=== PATIENT | male | born 1940 | race Caucasian/White ===

== ENCOUNTER 2020-11-04 06:22 | Inpatient (IN) | payer OTHER ==
[~2020-11-04] VITALS: Ht 170.2 cm; Wt 71.9 kg
[2020-11-04] VITALS (18 sets, daily range): BP systolic 102–149; BP diastolic 52–103
[2020-11-04 06:55] LABS: ABSOLUTE NEUTROPHILS 6.5 thou/uL (1.4-8.2); BASOPHILS 0.7 % (0.0-2.0); EOSINOPHILS 1.4 % (0.0-3.0); HEMATOCRIT 39.1 % (42.0-52.0); HEMOGLOBIN 12.6 gm/dL (14.0-18.0); LYMPHOCYTES 31.9 % (24.0-44.0); MCH 31.1 pg (26.0-34.0); MCHC 32.4 g/dL (28.0-37.0); PLATELET COUNT 212 thou/uL (150-400); RBC 4.07 mil/uL (4.50-6.00); RDW 12.5 % (10.5-14.5); WBC 10.6 thou/uL (4.0-11.0)
[2020-11-04 07:02] LABS: INR 0.97; PROTIME 10.6 Seconds (10.5-12.1)
[2020-11-04 07:09] LABS: ALBUMIN 3.9 g/dL (3.4-5.0); ANION GAP 25 mmol/L (7-16); BUN 33 mg/dL (7-18); CALCIUM 9.5 mg/dL (8.5-10.1); CHLORIDE 102 mmol/L (98-107); CO2 12 mmol/L (21-32); CREATININE 2.2 mg/dL (0.7-1.3); GLUCOSE 207 mg/dL (74-106); POTASSIUM 4.3 mmol/L (3.5-5.1); SGOT 20 U/L (15-37); SGPT 26 U/L (16-63); SODIUM 139 mmol/L (136-145); TOTAL BILIRUBIN 0.3 mg/dL (0.2-1.0); TOTAL PROTEIN 7.5 g/dL (6.4-8.2); TROPONIN-I <0.06 ng/mL (<0.06)
[2020-11-04 08:41] LABS: URINE BILIRUBIN NEGATIVE (Negative); URINE BLOOD 1+ (Negative); URINE CLARITY CLEAR; URINE COLOR YELLOW; URINE GLUCOSE-RANDOM* NEGATIVE (Negative); URINE KETONES NEGATIVE (Negative); URINE LEUKOCYTES-REFLEX NEGATIVE (Negative); URINE NITRITE-REFLEX NEGATIVE (Negative); URINE PROTEIN (DIPSTICK) TRACE (Negative); URINE SPECIFIC GRAVITY >= 1.030 (1.005-1.035); URINE UROBILINOGEN 0.2 E.U./dl (0.2-1.0)
[2020-11-04 08:46] LABS: AMP/METHAMP Negative (Negative); BARBITURATES Negative (Negative); BENZODIAZEPINES Negative (Negative); COCAINE Negative (Negative); OPIATES Negative (Negative); PCP Negative (Negative)
--- NOTE | 2020-11-04 08:46 | EKG ---
[address] [place] [address] ELECTROCARDIOGRAM REPORT Name: DYLON SHOEMAKER Room #: REG KATIE Acuna#: [id number] Admission: 11/04/20 Attend Phys: Discharge: Date of : 38 Report #: [id number] [facility] ED Test Date: 2020-11-04 Test Time: 06:36:26 Pat Name: DYLON SHOEMAKER Department: Patient ID: [id number]- Room: Gender: M Bearing Maker: tej : 1940 Requested By: Conchita Mandujano Order Number: [id number] MD: Gigi Guerra Measurements Intervals [place] Rate: 132 P: 38 DC: 142 QRS: 45 QRSD: 97 T: 30 QT: 300 QTc: 445 Interpretive Statements Sinus tachycardia Baseline wander in lead(s) V6 No previous ECG available for comparison Electronically Signed On 11-04-2020 8:46:10 CDT by Gigi Guerra [email or web address] <ELECTRONICALLY SIGNED> By: Gigi Guerra MD, [facility] 11/04/20 0846 [id number] Gigi Guerra MD, FACC /EPI
[2020-11-04 08:57] LABS: METHADONE Negative (Negative)
[2020-11-04 09:21] LABS: CASTS None Seen /LPF (None Seen); SQUAMOUS 0-3 Few /LPF (0-3)
[2020-11-04 09:22] LABS: BACTERIA-REFLEX None Seen /HPF (None Seen); CRYSTALS None Seen /LPF (None Seen); MUCUS 0-3 Light strn/LPF (None Seen); URINE RBC 3-10 Few /HPF (NONE SEEN); URINE WBC-REFLEX 0-5 Rare /HPF (0-5)
[2020-11-04] MEDS ORDERED: ROSUVASTATIN CA10 MG PO ×2 (09:31)
[2020-11-04] MEDS ORDERED: CELEBREX 200 M200 MG PO (09:32)
[2020-11-04] MEDS ORDERED: VOLTAREN GEL 1100 G1 TOP (09:33)
[2020-11-04] MEDS ORDERED: ASA81BEC PO (09:33)
[2020-11-04] MEDS ORDERED: SYNTHROID125 MC1 PO (09:33)
[2020-11-04] MEDS ORDERED: RAPAFLO8 MG PO (09:35)
[2020-11-04] MEDS ORDERED: NEXIUM 40 MG CA40 M1 PO (09:35)
[2020-11-04] MEDS ORDERED: TRIAMCINOLONE A15 G1 TOP ×2 (09:36)
[2020-11-04] MEDS ORDERED: EUCERIN ADVANCE85 GM TOP ×2 (09:37)
[2020-11-04] MEDS ORDERED: LISINOPRIL5 MG PO ×2 (09:37)
[2020-11-04] MEDS ORDERED: MECLIZINE HCL25 M1 PO ×2 (09:37)
[2020-11-04] MEDS ORDERED: FLONASE 0.05%50 MCG NARES (09:38)
[2020-11-04] MEDS ORDERED: ZYRTEC10 M5 PO ×2 (09:38)
[2020-11-04] MEDS ORDERED: SINGULAIR 10 MG10 M1 PO (09:39)
[2020-11-04 10:54] LABS: CSF GLUCOSE 103 mg/dL (40-70); CSF PROTEIN 68 mg/dL (15-45)
[2020-11-04 11:33] LABS: CSF COLOR XANTHOCHROMIC; VOLUME 2 ml
[2020-11-04 11:34] LABS: CSF CLARITY SL HAZY; CSF RBC 1081 /mm3; CSF WBC 8 /mm3 (0-10)
[2020-11-04 11:43] LABS: FOLIC ACID 26.1 ng/mL (8.6-58.9)
--- NOTE | 2020-11-04 18:03 | NUR ---
AT APPX 1140, PT CARE TAKEN OVER BY THIS RN AFTER RECEIVING REPORT. PT VERY RESTLESS, ABLE TO OPEN EYES TO VOICE, BUT NOT FOLLOWING COMMANDS. CONTINUOUS CARDIAC MONITORING AND FREQUENT VS IN PROGRESS. SEIZURE PRECAUTIONS IN PLACE. FAMILY AT BEDSIDE. CONTACT INFORMATION TAKEN AND UPDATES PROVIDED. REASSURANCES AND EMOTIONAL SUPPORT PROVIDED.
--- NOTE | 2020-11-04 18:05 | NUR ---
PT REMAINS RESTLESS AND RESTRAINED. PT OPENS EYES TO VOICE, BUT JUST MUMBLES IN RESPONSE TO QUESTIONS. PT DOES NOT FOLLOW COMMANDS, BUT MOVES ALL EXT INDEPENDENTLY DURING ROM W/ RESTRAINT ASSESSMENTS. PT CONDITION IS GUARDED BUT PROGRESSING TOWARD GOALS AT THIS TIME.
--- NOTE | 2020-11-04 22:50 | NUR ---
UPON INITIAL ASSESSMENT, PT WAS VERY RESTLESS IN BED. HE NODDED HIS HEAD YES WHEN ASKED IF HE WAS IN PAIN. PRN FENTANYL GIVEN. LORAZEPAM GIVEN FOR AGITATION/RESTLESSNESS. BEHAVIOR IMPROVED AND PT IS SLEEPING AT THIS TIME. PT IS IN BILATERAL WRIST RESTRAINTS. BILATERAL LEG RESTRAINTS NO LONGER NEEDED. PT'S MERY CALLED UNIT AROUND 2230. SHE WAS UPDATED ON PT STATUS. WILL CONTINUE TO MONITOR CLOSELY DURING THE NIGHT.
[2020-11-04 23:06] LABS: GLYCOHEMOGLOBIN (HGB A1C) 5.4 % (4.8-5.6)
[2020-11-05] VITALS (32 sets, daily range): BP systolic 84–142; BP diastolic 51–96
--- NOTE | 2020-11-05 03:49 | NUR ---
PT CONTINUES TO BE RESTLESS WHEN AWAKE. HE REMAINS CONFUSED AND UNABLE TO VERBALIZE ANY COHERENT WORDS. PRN LORAZEPAM AND FENTANYL GIVEN PER EMAR INDICATED FOR PAIN AND/OR AGITATION. RESTLESSNESS IMPROVES WITH MEDICATION. PT APPEARS TO HAVE SOME PERIODS OF APNEA WHILE SLEEPING. HE REMAINS ON 2-3L NC. FALL PRECAUTIONS IN PLACE. NOT PROGRESSING WELL TOWARD POC GOALS. WILL CONTINUE TO MONITOR.
[2020-11-05 05:11] LABS: ABSOLUTE NEUTROPHILS 6.1 thou/uL (1.4-8.2); BASOPHILS 0.3 % (0.0-2.0); EOSINOPHILS 0.1 % (0.0-3.0); HEMATOCRIT 28.5 % (42.0-52.0); LYMPHOCYTES 14.1 % (24.0-44.0); MCH 31.6 pg (26.0-34.0); MONOCYTES 10.1 % (1.0-8.0); POLYS 75.4 % (36.0-66.0); RBC 3.06 mil/uL (4.50-6.00); RDW 12.5 % (10.5-14.5); WBC 8.1 thou/uL (4.0-11.0)
[2020-11-05 05:23] LABS: CALCIUM 8.1 mg/dL (8.5-10.1); CREATININE 1.7 mg/dL (0.7-1.3); MAGNESIUM 2.1 mg/dL (1.8-2.4); POTASSIUM 4.1 mmol/L (3.5-5.1)
[2020-11-05 05:28] LABS: HEMOGLOBIN 9.7 gm/dL (14.0-18.0); PLATELET COUNT 133 thou/uL (150-400)
--- NOTE | 2020-11-05 09:50 | NUR ---
spoke with , note is for Dorothy mendes, son girl friend. cm work note completed and given to bedside nurse to give to family when they arrive today.
[2020-11-05 11:10] LABS: BE(vivo) -6.2 mmol/L (-2 to +3); HCO3 18.4 mmol/L (22.0-26.0); PCO2 33.5 mmHg (35.0-45.0); PO2 65.5 mmHg (80.0-100.0); pH 7.358 (7.360-7.450); sO2 92.4 % (92.0-98.0)
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
--- NOTE | 2020-11-05 13:55 | NUR ---
VAT CONSULTED FOR CVAD. ATTEMPTED LIJ, VESSEL DISAPPEARS WITH INSPIRATION, SO UNSUCCESSFUL.RESP MORE MOIST, NOT TOLERATING POSITION OF HEAD. SO HOB ELEVATED AND HUNG BASILIC WAS WIDELY PATENT WITH USG, 5FR TL POWER PICC TRIMMED TO 42CM INSERTED TO 3CM EXTERNAL WITH PEAKED PWAVES ON 3CG FOR CONFIRMATION. PICC RELEASED FOR IMMEDIATE USE PER PROTOCOL. PT TOLERATED WELL.
[2020-11-05 14:27] LABS: HEMOGLOBIN 10.9 gm/dL (14.0-18.0)
--- NOTE | 2020-11-05 19:54 | NUR ---
PT OBTUNDED AND LETHARGIC. NOT FOLLOWING COMMANDS.MUMBLES WORDS EXPRESSING PAIN AND NOT TO BE SUCTIONED. PT GURGLING AND VERY WEAK TO CLEAR HIS SECRETIONS. AND AWARE OF PATIENT CONDITION. ABG AND CEST XRAY WAS PERFORMED TO EVALUATE PATIENT RESPIRATORY STATUS. PT ON 4L NASAL CANNULA.PER PATIENT NEEDS TO BE PERIODICALLY SUCTIONED. PATIENT WAS NOT GIVEN ANY NARCOTICS AND ACTIVAN THROUGHOUT THE DAY. HOWEVER, ORDER FOR PRN HALDOL RECEIVED FOR AGITATION IN THE NIGHT. ARTIE OATES IN THE ROOFER HELPER VINYL COATING MADE AWARE ABOUT PERIODIC SUCTIONING AND NO USE OF NARCOTICS AND ACTIVAN FOR SEIZURES. CONTINUE TO MONITOR.
--- NOTE | 2020-11-05 22:42 | NUR ---
2229 - CALLED UNIT FOR UPDATE. SHE WAS INFORMED OF PT CONDITION SO FAR THIS EVENING. ALL QUESTIONS ANSWERED.
--- NOTE | 2020-11-05 22:43 | NUR ---
UPON INTIAL ASSESSMENT, PT DROWSY BUT EASILY ARROUSABLE. HE WAS ABLE TO SQUEEZE HANDS ON COMMAND. PT MUMBLES MOST WORDS BUT DID SAY "NO" WHEN ASKED IF HE WAS IN PAIN. HE ALSO STATED THAT HE WAS "READY TO GO HOME". PT HAS COUGH, BUT DOES NOT CLEAR HIS OWN ORAL SECRETIONS WELL. ORAL SUCTIONING PROVIDED; MODERATE AMOUNT OF YELLOW SECRETIONS SUCTIONED FROM BACK OF THROAT. VSS. WILL CONTINUE TO MONITOR.
[2020-11-06] VITALS (33 sets, daily range): BP systolic 110–154; BP diastolic 56–84
--- NOTE | 2020-11-06 05:41 | NUR ---
PT SLEPT MOST OF THE NIGHT. HE DOES BECOME IRRITABLE WITH NURSING CARE. SPO2 >92% ON 3-4L NC. PT CONTINUES TO HAVE DIFFICULTY CLEARING ORAL SECRETIONS IN BACK OF THROAT. ORAL SUCTIONING PROVIDED TO HELP PT CLEAR SECRETIONS. VSS. BILATERAL WRIST RESTRAINTS REMAIN IN PLACE. CHONG TO DD. 24 HOUR URINE COLLECTION UNTIL 0930. FALL PRECAUTIONS IN PLACE. NOT PROGRESSING WELL TOWARD POC GOALS.
[2020-11-06 05:48] LABS: HEMATOCRIT 30.5 % (42.0-52.0); HEMOGLOBIN 10.5 gm/dL (14.0-18.0); MCH 31.8 pg (26.0-34.0); MCHC 34.3 g/dL (28.0-37.0); MCV 92.9 fL (80.0-100.0); RBC 3.28 mil/uL (4.50-6.00); RDW 12.4 % (10.5-14.5); WBC 6.8 thou/uL (4.0-11.0)
[2020-11-06 06:01] LABS: CALCIUM 8.4 mg/dL (8.5-10.1); CREATININE 1.5 mg/dL (0.7-1.3); POTASSIUM 4.1 mmol/L (3.5-5.1)
[2020-11-06 10:08] LABS: ANA INTERPRETATION Negative (Negative)
--- NOTE | 2020-11-06 19:20 | NUR ---
PT MORE ALERT AND RESPONSIVE ACCORDING TO OTHERS OF CARE TEAM. WEANING O2 TO 1L IN EVENING, ALTHOUGH STILL DIFFICULTY W/CLEARING SECRETIONS. COUGH HAS SHOWN IMPROVMENT THROUGHOUT DAY AND WHILE AWAKE. 24 HOUR URINE SPECIMEN SENT IN AM. SEEN BY PT/OT. BED IN CHAIR POSITION. DID NOT TOLERATE SWALLOW EVAL TODAY. RESTRAINTS REMOVED @ 1300 PT WAS COOPERATIVE W/MAJORITY OF NURSING CARE W/EXCEPTION TO ORAL CARE/SUCTION.
[2020-11-07] VITALS (14 sets, daily range): BP systolic 132–160; BP diastolic 68–83
[2020-11-07 05:47] LABS: CALCIUM 8.2 mg/dL (8.5-10.1); CREATININE 1.4 mg/dL (0.7-1.3); POTASSIUM 3.6 mmol/L (3.5-5.1)
--- NOTE | 2020-11-07 06:34 | NUR ---
ORIENTEDX3, FOLLOWS COMMANDS, MILDLY IRRITABLE BUT COOPERATIVE. WEAK COUGH, NOT ABLE TO FULLY CLEAR SECRETIONS AND WILL NOT ALLOW RN TO ATTEMPT TO DEEP SUCTION. ENCOURAGED TO FREQUENTLY COUGH AND USE YAUNKER. ABLE TO ACCURATELY RECOUNT PAST INFORMATION, DOES NOT REMEMBER CIRCUMSTANCES THAT BROUGHT HIM IN. SR, BP STABLE, 02 OFF AT 0600, SATS >95%. DENIES PAIN.
--- NOTE | 2020-11-07 11:00 | NUR ---
chart review. discussed during los, possible ready for dc by tuesday, still npo . 5n consults vs home with hh. he on RA, elevated temp over hs. no anticipated dc over the weekend. will cont following as needed for dc needs.
--- NOTE | 2020-11-07 15:05 | NUR ---
PT WORKING WITH ST/PT/OT TODAY. UP TO CHAIR. TOLERATING PUREED DIET AND HONEY THICK LIQUIDS. PT VERY WEAK. PT'S SON AND HERE THIS AFTERNOON AND UPDATED. ORDER TO TRANSFER OUT OF ICU. WILL CALL REPORT TO 3W RN.
--- NOTE | 2020-11-07 16:05 | NUR ---
PATIENT IS A CANDIDATE FOR ACUTE REHAB AND HAS BEEN ACCEPTED FOR 5N PENDING BED AVIALABILITY. WEEKEND LIAISON FOR REHAB IS TACHO Green AND CAN BE REACHED AT [phone].
--- NOTE | 2020-11-07 16:45 | NUR ---
report given to cristin vaughn 3w. transferred to 3w. pt's and son informed.
--- NOTE | 2020-11-07 19:26 | NUR ---
PATIENT TRANFERED FROM ICU AT 1545. A/O X3. PLEASANT. PATIENT TURN TO AGITED AND CONFUSED AT 1800. PUTED PICC LINE OUT REFUSED TO HAVE DINER. MAX ASSISTED BACK TO BED WITH BED ARLRM ON. WILL KEEP MONITOR.
[2020-11-08 04:40] VITALS: BP 154/79
[2020-11-08 07:05] VITALS: BP 122/59
--- NOTE | 2020-11-08 07:43 | NUR ---
PT IS CONFUSED AND IMPULSIVE AT POINTS STATING "I'M GETTING OUT OF BED TO LOOK FOR MY GLASSES." FOLLOWING POC WITH IVF AND IVPB. CHONG IN PLACE WITH GOOD OUTPUT. HOURLY ROUNDING.
[2020-11-08 11:12] LABS: HEMOGLOBIN 9.7 gm/dL (14.0-18.0)
[2020-11-08 11:15] LABS: HEMATOCRIT 27.8 % (42.0-52.0); MCHC 34.9 g/dL (28.0-37.0); MCV 91.9 fL (80.0-100.0); RBC 3.03 mil/uL (4.50-6.00); RDW 12.1 % (10.5-14.5); WBC 4.4 thou/uL (4.0-11.0)
[2020-11-08 11:24] LABS: CALCIUM 8.5 mg/dL (8.5-10.1); CREATININE 1.4 mg/dL (0.7-1.3); POTASSIUM 3.4 mmol/L (3.5-5.1)
--- NOTE | 2020-11-08 14:54 | NUR ---
assumed care of pt at 0700. pt in no distress. pleasant. oriented to situation. socializing with family. no seizure activity ordered. ivf adjusted per physician. good output. up to chair for most of the day, requiring moderate assist. no othejr changes to report.
[2020-11-08 19:32] VITALS: BP 142/78
--- NOTE | 2020-11-08 20:57 | NUR ---
SOA GUTTERAL, WHEEZING UPPER LOBES, DIMINISHED IN THE BASES. SOA WITH MOVEMENT, ABLE TO COMMUNICATE. PROVIDER LABORATORY ASSOCIATE NOTIFIED. ORDERS RECEIVED.
--- NOTE | 2020-11-08 22:55 | NUR ---
PT RESTING IN BED. O2 PER NC. PT SOA, LUNGS COARSE. FAMILY AT BEDSIDE. PT OBESE GENERALIZED EDEMA. PT STATED HE HAS FLUID ON HIS HEART AND THAT HE HAS HAD 5 HEART ATTACKS. CHONG TO DD. CPAP AT HS. PT REPORTED CONSTIPATION MEDICINE ADDED AND THAT HE HAD A SMALL BM ON DAY SHIFT ON BSC. CHEERFUL HAPPY, HUSLIA. BED ALARM ON.
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
[2020-11-09 05:03] VITALS: BP 123/61
[2020-11-09 07:08] VITALS: BP 127/61
[2020-11-09 10:44] LABS: CALCIUM 8.4 mg/dL (8.5-10.1); CREATININE 1.5 mg/dL (0.7-1.3); POTASSIUM 3.4 mmol/L (3.5-5.1)
[2020-11-09 15:08] VITALS: BP 137/78
--- NOTE | 2020-11-09 17:33 | NUR ---
PT ASSESSED AT START OF SHIFT. VERY BEAVER BUT MOSTLY ORIENTED. WEAKNESS AND NEEDS HELP TRANSFERING. EATING PUREED DIET W/ OCCASIONAL COUGHING BUT NO SIGNS OF ASPIRATION. SMALL SOFT BROWN BM. GOOD URINE OUTPUT. DAUGHTER IN TO VISIT. C/O ANIL HIP PAIN W/ TYLENOL WHICH HELPED. PLANNING ON REHAB BEFORE GOING HOME.
[2020-11-09 19:07] VITALS: BP 146/83
--- NOTE | 2020-11-09 22:57 | NUR ---
PTALERT. MILDLY CONFUSED. REORIENTED PT TO CARRECT DATE AND PLACE. SEIZURE PRECAUTIONS IN PLACE. NO S/S SZ ACTIVITY NOTED SO FAR TONIGHT. NO C/O PAIN. NO S/S DISTRESS . SR ON THE MONITOR. BED DOWN . CALL LIGHT IN REACH. BED ALARM IS ON.
--- NOTE | 2020-11-10 00:35 | NUR ---
PT C/O ANIL HIP PAIN 11/03. MEDICATED WITH 2 TLENOL ORDERED. NO OTHER S/S SZ OR DISTRESS NOTED.
[2020-11-10 04:23] VITALS: BP 149/98
[2020-11-10 06:01] LABS: CALCIUM 8.5 mg/dL (8.5-10.1); CREATININE 1.5 mg/dL (0.7-1.3); POTASSIUM 3.2 mmol/L (3.5-5.1)
--- NOTE | 2020-11-10 06:13 | NUR ---
Pt progrssing slowly towards d/c goals. NO SKIN BREAKDOWN NOTED. VSS AFEBRILE. C/O BILATERAL HIP PAIN. MEDICATED WITH TYLENOL PO. PRESENTLY HE IS SLEEPING. NO S/S PAIN.
[2020-11-10 07:34] VITALS: BP 168/83
--- NOTE | 2020-11-10 07:51 | NUR ---
SPOKE WITH DR ASTUDILLO THIS AM. NOTIFIED HER PT CONTINUES TO C/O BILATERAL HIP PAIN. ANIL HIP XRAYS ORDERED. ARLETTE DISCONTINUED AT 07:40 THIS AM.
--- NOTE | 2020-11-10 11:19 | NUR ---
ON-GOING ASSESSMENT: CM REVIEWED CHART AND SPOKE WITH ATTENDING. PT IS HAVING HIP PAIN AND IS TO HAVE XRAYS TODAY. IF NO NEED TO INTERVENE PLAN IS POSSIBLE DISCHARGE TOMORROW TO [facility] ACUTE REHAB. ACUTE REHAB STATING THEY CAN ACCEPT PATIENT ONCE HE IS MEDICALLY STABLE BUT WANT TO CONTINUE TO SEE HOW HE DOES WITH THERAPY HE WAS IN ALOT OF PAIN. DR. HERNANDEZ MET WITH PATIENT THIS AM. PLAN IS FOR LIKELY DISCHARGE TO 5N TOMORROW. CM SPOKE WITH PATIENTS SHELBIE ORDONEZ TO UPDATE AND SHE STATES SHE WILL BE UP AT THE HOSPITAL THIS EVENING TO VISIT. CM ALSO NOTIFIED BEDSIDE RN PATIENT WILL NEED ANOTHER NEGATIVE COVID TEST PRIOR TO GOING TO 5N THEY REQUEST A TEST WITHIN 48 HOURS OF ADMISSIONS. CM WILL CONTINUE TO FOLLOW TO ASSIST NEEDED.
[2020-11-10 16:19] VITALS: BP 173/91
--- NOTE | 2020-11-10 18:56 | NUR ---
PATIENT CONTINUES TO COMPLAIN OF BILATERAL HIP PAIN, XRAY OBTAINED - SEE RESULTS. PATIENT WORKED WITH PT: AMBULATED IN ROOM AND SAT IN CHAIR FOR 2HR. PATIENT VOIDING WITHOUT COMPLICATION POST DC OF CHONG. PLANS TO DC TO REHAB ON 11/11/20 PENDING PHYSICIAN ORDERS.
[2020-11-10 19:36] VITALS: BP 150/85
--- NOTE | 2020-11-10 22:30 | NUR ---
PT PROGRESSING TOWARDS D/C GOALS. VSS AFEBRILE. C/O PAIN TO HIPS FLEXORIL GIVEN AND PT IS SLEEPING QUIETLY PRESENTLY. NO S/S SZ ACTIVITY NOTED. LEFT AC IV RESTARTED SINCE PT PULLED OUT IV ON DAY SHIFT X2. D5 AT 100 ML INFUSING. NO S/S DISTRESS. BED DOWN. CALL LIGHT IN REACH. BED ALARM IS ON. WILL CONTINUE TO MONITOR PT FOR CHANGES.
[2020-11-11 03:21] VITALS: BP 112/65
--- NOTE | 2020-11-11 06:09 | NUR ---
PT PROGRESING SLOWLY TOWARDS D/C GOALS. VSS AFEBRILE. PT SLPT BETTER AFTER RECEIVING HYDROCODONE FOR HIP PAIN. NO S/S SZ ACTIVITY NOTED TONIGHT.
[2020-11-11 07:42] VITALS: BP 127/93
[2020-11-11] MEDS ORDERED: IPRAT-ALBUT 0.5-3 ML INH ×2 (12:51)
[2020-11-11] MEDS ORDERED: DOXYCYCLINE HYC50 MG PO ×2 (12:51)
[2020-11-11] MEDS ORDERED: DIVALPROEX SOD500 M1 PO ×2 (12:52)
[2020-11-11] MEDS ORDERED: CYCLOBENZAPRINE5 MG PO ×2 (12:52)
[2020-11-11] MEDS ORDERED: NORVASC5 MG PO ×2 (12:52)
[2020-11-11] MEDS ORDERED: PEPCID20 MG PO ×2 (12:53)
[2020-11-11] MEDS ORDERED: VITAMIN B-1100 M2 PO ×2 (12:53)
--- NOTE | 2020-11-11 13:13 | NUR ---
DISCHARGE NOTE: SHASHA reviewed chart and spoke with nursing and attending physician. Pt is medically stable to discharge to 5N today. SW confirmed with [facility] manufacturing worker that they are able to accept pt today. Pt to be moved to room 509 on 5N. Repeat COVID test ordered today, which is negative. SHASHA met with pt at bedside to provide update and discuss discharge plan to 5N. Pt is aware and in agreement with plan. SHASHA spoke with pt's , Laura, via phone to notify of discharge and new room number. Pt's verbalized understanding and will be at [facility] later today. Pt's requested to speak with attending physician. SW provided contact info to attending physician. Pt to move to 5N when the room later today. Rehab CM to follow and assist as needed with discharge planning.
[2020-11-11 15:13] VITALS: BP 138/76
--- NOTE | 2020-11-11 17:33 | NUR ---
PATIENT DC'D TO REHAB. TELEPHONE REPORT GIVEN TO ARTIE PIZANO, WHO WILL ASSUME CARE OF PATIENT. PATIENT IS A/O X2-3 WITH PERIODS OF TEARFULNESS AND ANXIETY. PATIENT FC AND DOES HAVE BILAT HIP PAIN, SEE CHARTING. PATIENT TRANSFERRED VIA WHEEL CHAIR WITH FAMILY AT BEDSIDE.
[2020-11-13 09:41] LABS: HSV 1 DNA None detected
[2020-11-13 09:42] LABS: HSV 2 DNA None detected
[2020-11-13 09:51] LABS: HSV PCR SOURCE CSF
--- NOTE | 2020-11-13 17:58 | HC ---
[facility] [place] [address] CONSULTATION Name: DYLON SHOEMAKER Room #: 351-P [facility] IN M.R.#: [id number] Admission: 11/04/20 Attend Phys: Jose Manuel Moreira MD Discharge: 11/11/20 Date of : 39 Report #: [id number] THIS REPORT FOR: cc: FAM - Clinic physician unknown FAM - Clinic physician unknown Javi Roberson MD ~ DOC #: [id number] Javi Roberson MD DATE OF SERVICE: 11/04/2020 HISTORY OF PRESENT ILLNESS: This is an 80-year-old male patient who was seen by me today in the emergency room multiple times and subsequently in the ICU. I talked to the ICU nurses multiple times, ER nurses, MR boiler testing technician, emergency room physician, hospitalist, numerous times. The original consultation I got in this patient was from Emergency Room physician, Dr. Mandujano that this patient has presented to emergency room with multiple seizures. He had no prior history of seizure. The history I got was that he was not started on any potentially epileptiform medication recently. He does not drink alcohol at all and he has not drank any alcohol for a long time. His seizures were idiopathic at that time. His lactic acid was very high. Subsequently, I came to emergency room and I talked to the family, and confirmed the history. This patient had 2 seizure before. Emergency personnel went there, one he had in front of them and at least one he had an emergency room. The seizures will occur without recovering. . They got a CAT scan on him, which was mostly unremarkable. They could not get the CAT scan with contrast because his creatinine was high. I called his family doctor and got some history from him and apparently this patient does not drink any water on a persistent basis and does not keep himself hydrated. REVIEW OF SYSTEMS: Indicate that this is a new onset seizure. The patient was not any septic. The patient has pretty significant alteration in mental status for several hours before the patient had his first seizure, so he has alteration of his mentation, which led to seizure. I went over all the things with them and does not look like there is any potential epileptiform factors in this patient, which caused his seizure or alteration in mental status. He does not appear to be septic. His urinalysis was okay and his chest x-ray does not appear to be showing any pneumonia, so there is nothing which will cause him encephalopathy either. PAST MEDICAL HISTORY: Negative for seizure. FAMILY HISTORY: Also negative for congenital epilepsy. SOCIAL HISTORY: The family confirmed that he does not do any drugs and he does not drink any alcohol. [address] [address] CONSULTATION Name: DYLON SHOEMAKER Room #: 351-P [facility] IN M.R.#: [id number] Admission: 11/04/20 Attend Phys: Jose Manuel Moreira MD Discharge: 11/11/20 Date of : 39 Report #: [id number] PHYSICAL EXAMINATION: Attempted multiple times and all the time he is severely agitated. He is very restless. He is in restraints. He will not follow any commands, looks like he can move all 4 extremities, but rest of the examination is not possible. As an emergency, I got an MRI of the brain, MRA of the head, MRV done. He used to be on anti-inflammatory medication for his pain and wanted to rule out intracranial sinus thrombosis and I reviewed with the radiologist and he does not think there is any evidence for intracranial sinus thrombosis or in fact his MRI does not show any cause, which can explain his symptoms. He does not have any lesion in the temporal area and he does not have any lesion anywhere else in the brain or any suggestion on the MRI anything which can cause multiple seizures. I talked to emergency room physician and I talked to the family about indication, potential complication and alternatives for spinal tap. They wanted to proceed with a spinal tap. I talked to the emergency room physician that either she can do it or she should get it done under fellow by radiologist. She proceeded with spinal tap and looks like that is mostly unremarkable. It is a traumatic spinal tap and there are some RBCs and protein is probably high because of that but it was difficult to be certain that portion is being addressed by ID and I will defer further evaluation and management to them. They gave him a dose of Keppra, but the patient was still very agitated and because of that, I started him on valproic acid. I also gave him thiamine because he has kidney failure and he is so agitated and I am not sure what his nutritional status is. We will check her thyroid and B12 level in this patient and I have asked them to look for any infection marker. I am not sure what the etiology of the patient's seizures are. I have talked to his primary care and try to get as much history as possible because of this is an unusual age to start seizures and so far, we have not found any cause for the seizure. I have discussed the options with the family in great detail and I had multiple visits and throughout the day, I have spent more than 90 minutes of time taking care of this patient and majority was spent counseling and coordinating. MD CARLOS García/ALEXANDRA <ELECTRONICALLY SIGNED> By: Javi Roberson MD 11/13/20 [id number] Javi Roberson MD /nt
--- NOTE | 2020-11-13 17:58 | EEG ---
[facility] [place] [address] ELECTROENCEPHALOGRAM Name: DYLON SHOEMAKER Room #: 351-P [facility] IN M.R.#: [id number] Admission: 11/04/20 Attend Phys: Jose Manuel Moreira MD Discharge: 11/11/20 Date of : 39 Report #: [id number] THIS REPORT FOR: //name// DOC #: [id number] Javi Roberson MD DATE OF SERVICE: 11/05/2020 FINDINGS: This patient is being evaluated for the possibility of seizure. EEG is done to evaluate for any seizure. EEG was done by placing the electrode by standard 10-20 system of electrode placement. Both referential and sequential montages were used for recording. Background activity in this patient's EEG is about 7 Hz and 10 microvolt. Photic stimulation is unremarkable. Throughout the record, no active epileptiform activity was noticed. IMPRESSION: This patient's EEG does not demonstrate any active epileptiform activity. It is slow and poorly formed but that is a nonspecific abnormality which can occur with encephalopathy, effect of psychotropic medication, dementia, etc. Clinical correlation is recommended. Javi Roberson MD PK/ALL <ELECTRONICALLY SIGNED> By: Javi Roberson MD 11/13/20 1758 [id number] [id number] Javi Roberson MD /nt
--- NOTE | 2020-11-13 17:58 | EEG ---
[facility] [place] [address] ELECTROENCEPHALOGRAM Name: DYLON SHOEMAKER Room #: 351-P [facility] IN M.R.#: [id number] Admission: 11/04/20 Attend Phys: Jose Manuel Moreira MD Discharge: 11/11/20 Date of : 39 Report #: [id number] THIS REPORT FOR: //name// DOC #: [id number] Javi Roberson MD DATE OF SERVICE: 11/04/2020 This patient is being evaluated for multiple seizures. EEG was done by placing the electrode by standard 10-20 system of electrode placement. Both referential and sequential montages were used for recording. The patient was very agitated and it was very difficult to record the EEG. EEG appeared to be low voltage and background activity is about 7-8 Hz and about 10 microvolt. Photic stimulation is unremarkable. EEG was about the same throughout the record. IMPRESSION: This is an abnormal EEG because of its low voltage and poorly formed. That can occur with dementia, encephalopathy, effect of psychotropic medication, etc. Clinical correlation is recommended. Javi Roberson MD PK/KATHI <ELECTRONICALLY SIGNED> By: Javi Roberson MD 11/13/20 1758 [id number] Javi Roberson MD /nt
== END 2020-11-11 17:13 | DRG 100 ==
LOC: ER → EROBS 09:46 → ICU 09:46 → 3W 11-07 15:57
PROVIDERS: Emergency Medicine; Internal Medicine Pulmonary Disease; Nurse Practitioner; Psychiatry & Neurology Neuromuscular Medicine; ADMIT Hospitalist; ATTEND Hospitalist
DX: G40.409 Other generalized epilepsy and epileptic syndromes, not intractable, without status epilepticus (principal); J96.01 Acute respiratory failure with hypoxia; G93.41 Metabolic encephalopathy; N17.9 Acute kidney failure, unspecified; E87.2 Acidosis; E87.0 Hyperosmolality and hypernatremia; E78.5 Hyperlipidemia, unspecified; E03.9 Hypothyroidism, unspecified; E87.8 Other disorders of electrolyte and fluid balance, not elsewhere classified; K21.9 Gastro-esophageal reflux disease without esophagitis; I12.9 Hypertensive chronic kidney disease with stage 1 through stage 4 chronic kidney disease, or unspecified chronic kidney disease; M19.90 Unspecified osteoarthritis, unspecified site; E87.6 Hypokalemia; N40.0 Benign prostatic hyperplasia without lower urinary tract symptoms; N18.2 Chronic kidney disease, stage 2 (mild); J30.2 Other seasonal allergic rhinitis; D64.9 Anemia, unspecified; D69.6 Thrombocytopenia, unspecified; F32.9 Major depressive disorder, single episode, unspecified; Z20.822 Contact with and (suspected) exposure to COVID-19; Z79.82 Long term (current) use of aspirin; Z79.899 Other long term (current) drug therapy; Z98.42 Cataract extraction status, left eye; Z98.41 Cataract extraction status, right eye
CPT/HCPCS: 10078; 10879; 27000; 50455

== ENCOUNTER 2020-11-11 09:31 | Inpatient (IN) | payer OTHER ==
[~2020-11-11] VITALS: Ht 172.7 cm; Wt 70.3 kg
[~2020-11-11 09:31] MED LIST: ASA81BEC PO; CELEBREX 200 M200 MG PO; EUCERIN ADVANCE85 GM TOP; FLONASE 0.05%50 MCG NARES; LISINOPRIL5 MG PO; MECLIZINE HCL25 M1 PO; NEXIUM 40 MG CA40 M1 PO; RAPAFLO8 MG PO; ROSUVASTATIN CA10 MG PO; SINGULAIR 10 MG10 M1 PO; SYNTHROID125 MC1 PO; TRIAMCINOLONE A15 G1 TOP; VOLTAREN GEL 1100 G1 TOP; ZYRTEC10 M5 PO
[2020-11-11] MEDS ORDERED: DOXYCYCLINE HYC50 MG PO ×2 (12:51)
[2020-11-11] MEDS ORDERED: IPRAT-ALBUT 0.5-3 ML INH ×2 (12:51)
[2020-11-11] MEDS ORDERED: CYCLOBENZAPRINE5 MG PO ×2 (12:52)
[2020-11-11] MEDS ORDERED: DIVALPROEX SOD500 M1 PO ×2 (12:52)
[2020-11-11] MEDS ORDERED: NORVASC5 MG PO ×2 (12:52)
[2020-11-11] MEDS ORDERED: VITAMIN B-1100 M2 PO ×2 (12:53)
[2020-11-11] MEDS ORDERED: PEPCID20 MG PO ×2 (12:53)
--- NOTE | 2020-11-11 18:00 | NUR ---
NEW ADMISSION FORM [facility]. CAME IN ON WC WITH HOSP STAFF AND FAMILY MEMBERS. ALERT AND ORIENTATED X 2, FORGETFUL. REPORTED HAVING BILATERAL HIP PAIN AND HAS BEEN TAKING TYLENOL FOR PAIN RELIEF. SPOKE TO SARAH HASSAN AND RECEIVED ORDERS FOR TYLENOL AND LIDOCAINE PATCH. ASSESSMENT DONE AND HISTORY OBTAINED MAINLY FROM AND SON. VSS. NO SKIN TEAR, SLIGHT REDNESS ON THE BOTTOM. FALL PRECAUTION SIGNED, BED ALARM ON, CALL LIGHT WITHIN REACH. ALL CONCERNS AND QUESTIONS ANSWERED.
--- NOTE | 2020-11-12 03:01 | NUR ---
TYLENOL TWICE FOR HIP PAIN, USING URINAL AT SIDE OF BED FOR APPROX 200 CC AT A TIME WITH SOME EFFORT. STATES HE HAS HAD TROUBLE WITH URGENCY AND FREQUENCY FOR QUITE SOME TIME PREVIOUS TO THIS ADMISSION. STATES DOES NOT REMEMBER MUCH ABOUT THE EPISODE THAT BROUGHT HIM TO THE HOSPITAL BESIDES THAT HE GOT UP EARLY IN THE MORNING AND HIS HAD TO CALL THE AMBULANCE TO GET HIM TO THE HOSPITAL.
[2020-11-12 06:08] LABS: HEMATOCRIT 30.3 % (42.0-52.0); HEMOGLOBIN 10.3 gm/dL (14.0-18.0); MCH 31.8 pg (26.0-34.0); MCHC 34.1 g/dL (28.0-37.0); MCV 93.3 fL (80.0-100.0); RBC 3.25 mil/uL (4.50-6.00); RDW 12.6 % (10.5-14.5); WBC 8.3 thou/uL (4.0-11.0)
[2020-11-12 06:32] LABS: CALCIUM 8.5 mg/dL (8.5-10.1); CREATININE 1.8 mg/dL (0.7-1.3); POTASSIUM 4.2 mmol/L (3.5-5.1)
[2020-11-12 07:30] VITALS: BP 125/57
--- NOTE | 2020-11-12 10:51 | NUR ---
ASSUMED CARE AT 0700. PATIENT IS ALERT AND ORIENTED X2-3. PATIENT OLSEN'S, STEAM HAMMER OPERATOR ARE EQUAL. PATIENT IS ON SZ PRECAUTIONS. PATIENT IS ON ORAL ABT'S WITHOUT ADVERSE AFFECTS. PATIENT HAS SPASMS WHEN HE URINATES. HE ALSO HAS FREQ/URGENCY. PATIENT ABD IS SOFT WITH BSX4. FALL AND SAFETY PROTOCOLS IN PLACE. HAS OCCASIONAL PAIN IN HIS BACK/HIPS/ BLADDER. CONTINUES TO PROGRESS SLOWLY TOWARDS D/C GOALS. WILL CONTINUE TO MONITER.
--- NOTE | 2020-11-12 12:42 | NUR ---
RD consulted for pt newly admitted to rehab unit following acute stay for acute encephalopathy, seizures. Visit during lunch, pt eating and tolerating well. Provided menu for more options. Pt reports usual wt is 153 lb. Current wt 155 lb-pt laughing and states he cannot button his shorts right now. Does not have hx diabetes, so dc carb control diet. A1C 5.4% and not on diabetic medications. Eating 50-75%, and trying to drink 1 ensure per day. Should be able to discontinue the Ensure once consistently eating >75%. Low nutrition risk
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
[2020-11-12 19:33] VITALS: BP 137/82
--- NOTE | 2020-11-12 23:01 | NUR ---
PT ASSESSMENT COMPLETED AND VSS. MEDS GIVEN ORDERED WITH JUICE. PRN TYLENOL HELPFUL FOR GENERALIZED PAIN. ASST WITH REPOSITION FOR COMFORT. 0 SEIZURES NOTED THIS EVENING AND BED PADDED. SAT WNL ON RA. PT REMAINS FORGETFUL AND PLEASANT. SLEEPING WELL AT THIS TIME. WILL CONTINUE TO MONITOR FREQUENTLY.
[2020-11-13 08:00] VITALS: BP 127/61
--- NOTE | 2020-11-13 15:01 | NUR ---
ASSUMED CARE AT 0700. ALERT AND ORIENTATED X 1-2. PLEASANT, FOLLOW COMMANDS. REPORTED MILD PAIN IN HIS ANIL HIPS AND TREATED WITH TYLENOL WITH GOOD PAIN RELIEF. SEIZURE PRECAUTION MAINTAINED, NO SEIZURE EPISODE WITNESSED. ON ROOM AIR, DENIES ANY SHORT OF AIR. HAD A BM TODAY. PARTICIPATING WITH THERAPY.
[2020-11-13 19:19] VITALS: BP 122/65
--- NOTE | 2020-11-13 20:35 | NUR ---
ASSUMED CARE OF PT AT 1900. PT IS A&OX3. IS BIG SANDY. COOPER IN ROOM. IS ON ROOM AIR. REPORTS BACK PAIN THAT IS BEING MANAGED WITH ORAL PAIN MEDS & OTHER THERAPUETIC TECHNIQUES. IS STABLE. SEIZURE/FALL PRECAUTIONS & HOURLY ROUNDING CONTINUED THIS SHIF. PT IS ABLE TO TURN SELF IN BED. IS UP WITH 1 ASSIST, GB, WALKER. FALL PRECAUTIONS & HOURLY ROUNDING CONTINUED THIS SHIFT. LABS & VITALS REVIEWED. PT IS IN BED. WATCHING TV. CALL LIGHT WITHIN REACH. WILL CONTINUE TO MONITOR.
[2020-11-14 05:34] LABS: CHOLESTEROL 120 mg/dL (<200); HDL CHOLESTEROL 45 mg/dL (>40); LDL CHOLESTEROL 57 mg/dL (<100); TC:HDL 2.7 Ratio (Not establshd); TRIGLYCERIDE 92 mg/dL (<150); VLDL 18 mg/dL (<40)
[2020-11-14 05:46] LABS: SERUM ASSESSMENT Clear
[2020-11-14 08:00] VITALS: BP 156/61
--- NOTE | 2020-11-14 10:30 | NUR ---
PATIENT A&OX4, SLOW TO RESPOND TO ORIEBTATION QUESTIONS BUT ANSWERED ALL CORRECTLY. PT TOOK PILLS WHOLE WITH WATER. WILL CONTINUE TO MONITOR.
[2020-11-14 19:35] VITALS: BP 138/80
--- NOTE | 2020-11-15 01:04 | NUR ---
PATIENT PLEASANT BUT NOT SLEEPING MUCH. USING URINAL, MOISTURE BARRIER PERIANAL TO PINK AREA. SIDERAILS PADDED DUE TO APPARENT SEIZURE ACTIVITY RECENTLY.
--- NOTE | 2020-11-15 07:39 | NUR ---
ASSUMED CARE AT 0700. PATIENT IS ALERT AND ORIENTED X2-3, BUT FORGETFUL. PATIENT IS SAVOONGA. PATIENT OLSEN'S, BOX SHOOK PATCHER ARE EQUAL. HX OF SZ. PATIENT IS UP WITH ASSIST OF 1 STAFF AND GAITBELT. UP TO THE BATHROOM TO VOID JUNIOR COLORED URINE. FALL AND SAFETY PROTOCOLS IN PLACE. C/O LOWER BACK PAIN. MEDICATED WITH SCED LIDOCAINE PATCHES. UP TO DINING ROOM FOR MEALS. CONTINUES TO PROGRESS SLOWLY TOWARDS D/C GOALS. WILL CONTINUE TO MONITER.
[2020-11-15 08:00] VITALS: BP 144/83
[2020-11-15 19:26] VITALS: BP 128/59
--- NOTE | 2020-11-15 23:39 | NUR ---
PT ALERT AND ORIENTED X 3, FORGETFUL. AMB TO BR WITH WALKER AND ASSIST X 1. C/O BACK PAIN. SCHEDULED TYLENOL GIVEN AT HS. FLEXERIL ALSO GIVEN. BED ALARM ON FOR SAFETY. PT APPEARS TO BE SLEEPING ON HOURLY ROUNDS.
--- NOTE | 2020-11-16 07:20 | NUR ---
PATIENT IN BATHROOM UPON ON ARRIVAL TO PATIENT ROOM. SKIN INTACT, STEADY GAIT NOTED WITH WALKER, GAIT BELT. NO SEIZURES REPORTED FROM PATROL DEPUTY SHERIFF. PATIENT A7OX4, FORGETFUL. PATIENT STATES HE IS READY TO GO HOME STATES HE WILL FEEL BETTER BEING HOME. BED IN LOW POSITION, CALL LIGHT WITHIN REACH, WILL CONTINUE TO MONITOR
[2020-11-16 08:00] VITALS: BP 145/59
[2020-11-16 19:05] VITALS: BP 136/78
--- NOTE | 2020-11-17 02:23 | NUR ---
USING URINAL WITHOUT ASSIST, ASKING FOR STAFF TO EMPTY WHEN IT IS UP TO 500 CC. BM TODAY, DECLINED LIDODERM FOR BACK PAIN TODAY. FLEXERIL GIVEN WITH SCHEDULED HS TYLENOL FOR BACK PAIN AND HE IS SLEEPING NOW. TURNING SELF TO RIGHT SIDE, BUT DECLINING PILLOW TO BACK. ANTICIPATING DISCUSSION WITH DR ARBOLEDA TODAY. HOPING TO GO HOME IN THE NEAR FUTURE.
[2020-11-17 07:15] VITALS: BP 137/79
[2020-11-17 20:10] VITALS: BP 136/85
--- NOTE | 2020-11-18 04:24 | NUR ---
ASSUMED CARE AT 1900 OF 11/17. A&OX4. SCHEDULED TYLENOL AND PRN FLEXIRIL ADMINISTERED AT HS TO MANAGE BACK PAIN. USES URINAL TO VOID, CLEAR YELLOW URINE NOTED. ABLE TO TURN HIMSELF IN BED. WILL CONTINUE TO MONITOR.
[2020-11-18 08:00] VITALS: BP 147/59
--- NOTE | 2020-11-18 11:33 | NUR ---
ASSUMED PT CARE AROUND 0700. PT ALERT X ORIENTED X 4. ON ROOM AIR. ONE PERSON X ASSIST WITH GAIT BELT TO BATHROOM. HARD OF HEARING. ON SEIZURE PRECAUTION. SKIN TEAR ON RT FORE ARM. MEDICINES TAKEN TODAY MORNING WITH THIN LIQUIDS. REFUSED LIDOCAINE PATH TODAY MORNING. SITTING COMFORTABLY IN THE CHAIR. FALL PRECAUTION IN PLACE. WILL CONTINUE TO MONITOR.
--- NOTE | 2020-11-18 13:20 | NUR ---
team meeting, outpt follow up neuro pysch. mod/cog, memory/sever. need assist with pills and bills. dc 28th outpt pt and speech. no driving
[2020-11-18 19:18] VITALS: BP 126/73
--- NOTE | 2020-11-19 00:12 | NUR ---
PT ALERT AND ORIENTED X 4. VOIDING CLEAR YELLOW URINE PER URINAL. PT DENIES PAIN OR DISCOMFORT. BED ALARM ON FOR SAFETY. PT APPEARS TO BE SLEEPING ON HOURLY ROUNDS.
--- NOTE | 2020-11-19 07:17 | NUR ---
PATIENT RESTING IN BED QUIETLY WITH EYES CLOSED, BED IN LOW POSITION, CALL LIGHT WITHIN REACH, BED ALARM ON.
[2020-11-19 08:00] VITALS: BP 123/75
--- NOTE | 2020-11-19 08:33 | NUR ---
ASSUMED CARE OF PATIENT. PATIENT UP IN CHAIR A&OX4. PATIENT STATES THAT HIS WOULD LIKE TO SPEAK WITH THE DOCTOR TO HELP FIND A NEW PCP. CHAIR ALARM ON, CALL LIGHT IN REACH, WILL CONTINUE TO MONITOR.
[2020-11-19] MEDS ORDERED: DIVALPROEX SOD500 M1 PO ×2 (12:29)
--- NOTE | 2020-11-19 12:58 | NUR ---
Nutrition followup: pt continues on rehab unit. Eating 70-100% of meals on regular diet. Ensure is D/C'ed. Weight remains up 2# from usual. BM 11/18. Pt voices now questions/concerns for RD. Plan D/C 11/21. Low nutrition risk.
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
--- NOTE | 2020-11-19 15:37 | PLAN ---
[facility] [place] [address] REHAB UNIT PLAN OF CARE Name: DYLON SHOEMAKER Room #: 509-P ADM IN M.R.#: [id number] Admission: 11/11/20 Attend Phys: Poli Malone MD Discharge: Date of : 39 Report #: [id number] THIS REPORT FOR: cc: Yared Cruz MD, Thomas P. MD Smithson, David G. MD ~ DOC #: [id number] Poli Malone MD DATE OF SERVICE: 11/14/2020 PROGRESS NOTE/OVERALL PLAN OF CARE SUBJECTIVE: The patient is seen back today in followup. He is in no distress. Temperature 36.6, pulse 93, respirations 20, blood pressure 122/65. He is hard of hearing, but follows basic commands. He has bilateral thigh discomfort. He had hip x-rays done of both hips, which were negative. On exam, he tends to favor moving both legs proximally secondary to pain. Strength is probably a grade 4- to 3+/5 bilateral lower extremities. He notes discomfort of the medial thigh and lateral thigh bilaterally. Functionally, he is progressing with sit to stand, now contact guard assistance and is ambulating 170 feet front-wheeled walker with min assist. Order has been written for a CT scan of his lumbar spine with his complaints. There is consideration that the statin may be a component as he has had problems with that in the past. The patient was on atorvastatin and this was discontinued yesterday. Cognitively, he has moderate to severe cognitive deficits with severe memory deficits. ASSESSMENT: 1. Acute encephalopathy. 2. Prior grand mal, new onset seizures. 3. Respiratory failure, resolved. 4. Bilateral thigh discomfort. Hip x-rays did not reveal any fracture. He is to undergo a lumbar spine CT scan. These complaints may go along with a myalgia or myopathy from the statin drug and he has had some problems with this in the past per report. 5. Urinary urgency/frequency which is premorbid. 6. History of right shoulder injury. 7. Chronic kidney disease. 8. Degenerative arthritis. PLAN: The overall plan of care is based on the pre-admission screen and information garnered from therapy assessments. 1. Estimated length of stay is around 10 days to possibly 14 days. 2. Medical prognosis is reasonably good. 3. Anticipated interventions includes the interdisciplinary acute inpatient rehabilitation program. 4. Anticipated functional outcomes would be for [place] [address] REHAB UNIT PLAN OF CARE Name: DYLON SHOEMAKER Room #: 509-P [facility] IN .R.#: [id number] Admission: 11/11/20 Attend Phys: Poli Malone MD Discharge: Date of : 39 Report #: [id number] independent with transfers, mobility and ADLs and to improve further as far as cognition, so that he can return back to the home setting. 5. Discharge destination would be back home with . 6. Expected therapy by discipline includes PT, OT and speech 1 hour per day each five days a week throughout the duration of the acute inpatient rehabilitation stay. ADDENDUM: The patient's prognosis for significant practical improvement within a reasonable period of time appears good. Given the patient's complex medical condition and risk of further medical complication, rehabilitation services could not be safely provided at the lower level of care such as a detention facility. Poli Malone MD DGS <ELECTRONICALLY SIGNED> By: Poli Malone MD 11/19/20 1537 [id number] Poli Malone MD /nt
[2020-11-19 19:24] VITALS: BP 141/79
--- NOTE | 2020-11-20 01:44 | NUR ---
ASSUMED CARE AT 1900 OF 11/19. A&OX4. VOIDS PER URINAL, CLEAR YELLOW URINE NOTED. SCHEDULED TYLENOL AND PRN FLEXERIL ADMNISITER AT HS TO MANAGE BACK PAIN. PATIENT HAS BEEN SLEEPING IN BED DURING HOURLY ROUNDS, BED ALARM ON. WILL CONTINUE TO MONITOR.
[2020-11-20 05:42] LABS: ABSOLUTE NEUTROPHILS 2.8 thou/uL (1.4-8.2); BASOPHILS 1.4 % (0.0-2.0); EOSINOPHILS 4.7 % (0.0-3.0); HEMATOCRIT 30.4 % (42.0-52.0); HEMOGLOBIN 10.7 gm/dL (14.0-18.0); LYMPHOCYTES 32.6 % (24.0-44.0); MCH 33.2 pg (26.0-34.0); MCHC 35.4 g/dL (28.0-37.0); MCV 93.9 fL (80.0-100.0); PLATELET COUNT 361 thou/uL (150-400); POLYS 48.3 % (36.0-66.0); RBC 3.24 mil/uL (4.50-6.00); WBC 5.8 thou/uL (4.0-11.0)
[2020-11-20 05:43] LABS: CALCIUM 8.5 mg/dL (8.5-10.1); CREATININE 1.7 mg/dL (0.7-1.3); MAGNESIUM 2.2 mg/dL (1.8-2.4); POTASSIUM 4.2 mmol/L (3.5-5.1)
[2020-11-20 08:00] VITALS: BP 112/72
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
--- NOTE | 2020-11-20 15:56 | NUR ---
CALM AND COOPERATIVE SO FAR THIS SHIFT-DENIES C/O PAIN OR DISCOMFORT WHEN ASKED. STATES IS EAGER TO GO HOME TOMORROW AND REPORTS FEELING BORED,"NOTHING TO DO" NO SEIZURE ACTIVITY NOTED OR REPORTED, GAIT STEADY WITHOUT ASSISTIVE DEVICES-REMAINS ON FALL PRECAUTIONS AND IS COMPLIENT WITH CALLING FOR HELP. LUNGS CLEAR. AM BP MEDS HELD FOR LOW BP PULSE 94/58-P60. DENIES DIZZINESS UPON ARISING. AM BLOOD SUGAR 73-NEW "O" RECEIVED TO HOLD GLYBURIDE.
--- NOTE | 2020-11-20 20:22 | NUR ---
Assumed care on 11/20/20 @ 19:30, Alert and Oriented x4, pleasant affect noted, on the phone with . HRRR, Lung sounds CTA bilat, ABD N x 4Q. Denies pain. Call light within reach.
[2020-11-21 07:15] VITALS: BP 123/62
[2020-11-21] MEDS ORDERED: DIVALPROEX SOD500 M1 PO ×2 (08:58)
[2020-11-21 10:39] VITALS: BP 123/62
== END 2020-11-21 11:20 | disposition home health service (06) | DRG 70 ==
PROVIDERS: Nurse Practitioner; Nurse Practitioner Family; ADMIT Physical Medicine & Rehabilitation; ATTEND Physical Medicine & Rehabilitation
DX: G93.40 Encephalopathy, unspecified (principal); J96.01 Acute respiratory failure with hypoxia; E87.0 Hyperosmolality and hypernatremia; E46 Unspecified protein-calorie malnutrition; N18.2 Chronic kidney disease, stage 2 (mild); E87.8 Other disorders of electrolyte and fluid balance, not elsewhere classified; D64.9 Anemia, unspecified; E87.6 Hypokalemia; E78.5 Hyperlipidemia, unspecified; E03.9 Hypothyroidism, unspecified; D69.6 Thrombocytopenia, unspecified; M19.90 Unspecified osteoarthritis, unspecified site; I12.9 Hypertensive chronic kidney disease with stage 1 through stage 4 chronic kidney disease, or unspecified chronic kidney disease; R41.9 Unspecified symptoms and signs involving cognitive functions and awareness; F41.9 Anxiety disorder, unspecified; Z96.611 Presence of right artificial shoulder joint; R35.0 Frequency of micturition; M48.061 Spinal stenosis, lumbar region without neurogenic claudication; G40.409 Other generalized epilepsy and epileptic syndromes, not intractable, without status epilepticus; N40.1 Benign prostatic hyperplasia with lower urinary tract symptoms; Z68.23 Body mass index [BMI] 23.0-23.9, adult; Z98.41 Cataract extraction status, right eye; Z98.42 Cataract extraction status, left eye
CPT/HCPCS: 10112

== ENCOUNTER → 2021-03-29 | Emergency (ER) | payer OTHER ==
[~2021-03-29] VITALS: Ht 175.3 cm; Wt 77.1 kg
[~2021-03-29] MED LIST changes: +CYCLOBENZAPRINE5 MG PO; +DEPAKOTE ER250 MG PO; +DIVALPROEX SOD500 M1 PO; +DOXYCYCLINE HYC50 MG PO; +IPRAT-ALBUT 0.5-3 ML INH; +NORVASC5 MG PO; +PEPCID20 MG PO; +VITAMIN B-1100 M2 PO
[2021-03-29 09:40] LABS: BASOPHILS 0.2 % (0.0-2.0); EOSINOPHILS 0.1 % (0.0-3.0); HEMATOCRIT 34.9 % (42.0-52.0); HEMOGLOBIN 11.7 gm/dL (14.0-18.0); LYMPHOCYTES 4.9 % (24.0-44.0); MCH 31.3 pg (26.0-34.0); MCHC 33.6 g/dL (28.0-37.0); MONOCYTES 2.7 % (1.0-8.0); PLATELET COUNT 198 thou/uL (150-400); POLYS 92.1 % (36.0-66.0); RBC 3.75 mil/uL (4.50-6.00); WBC 8.7 thou/uL (4.0-11.0)
[2021-03-29 09:43] LABS: CALCIUM 9.2 mg/dL (8.5-10.1); POTASSIUM 4.2 mmol/L (3.5-5.1)
[2021-03-29 09:50] LABS: ALBUMIN 3.5 g/dL (3.4-5.0); TOTAL BILIRUBIN 0.2 mg/dL (0.2-1.0); TOTAL PROTEIN 6.9 g/dL (6.4-8.2)
[2021-03-29 12:07] LABS: URINE BILIRUBIN NEGATIVE (Negative); URINE BLOOD TRACE (Negative); URINE CLARITY CLEAR; URINE COLOR YELLOW; URINE GLUCOSE-RANDOM* NEGATIVE (Negative); URINE KETONES NEGATIVE (Negative); URINE LEUKOCYTES-REFLEX NEGATIVE (Negative); URINE NITRITE-REFLEX NEGATIVE (Negative); URINE PROTEIN (DIPSTICK) NEGATIVE (Negative); URINE SPECIFIC GRAVITY 1.025 (1.005-1.035); URINE UROBILINOGEN 0.2 E.U./dl (0.2-1.0)
[2021-03-29 13:00] VITALS: BP 124/68
--- NOTE | 2021-03-30 07:28 | EKG ---
[place] [address] [facility] [place] [address] ELECTROCARDIOGRAM REPORT Name: DYLON SHOEMAKER Room #: REG KATIE [place]#: [id number] Admission: 03/29/21 Attend Phys: Discharge: Date of : 38 Report #: [id number] [facility] ED Test Date: 2021-03-29 Test Time: 10:06:33 Pat Name: DYLON SHOEMAKER Department: Room: Gender: Valet: TONI : 1940 Requested By: John Pond Order Number: [id number] MD: Robbin Aviles Measurements Intervals Welch Rate: 89 P: 39 WV: 175 QRS: 30 QRSD: 102 T: 28 QT: 371 QTc: 452 Interpretive Statements Sinus rhythm Normal tracing No previous ECG available for comparison Electronically Signed On 03-30-2021 7:28:22 CDT by Robbin Aviles [email or web address] <ELECTRONICALLY SIGNED> By: Robbin Aviles MD, [facility] 03/30/21 0728 1006 [id number] Robbin Aviles MD, FACC /EPI
== END ==
LOC: ER 08:37
PROVIDERS: Emergency Medicine
DX: R56.9 Unspecified convulsions (principal); E78.5 Hyperlipidemia, unspecified; E03.9 Hypothyroidism, unspecified; I12.9 Hypertensive chronic kidney disease with stage 1 through stage 4 chronic kidney disease, or unspecified chronic kidney disease; N18.9 Chronic kidney disease, unspecified; F32.9 Major depressive disorder, single episode, unspecified; Z79.899 Other long term (current) drug therapy; Z79.82 Long term (current) use of aspirin